=== PATIENT | female | born 2000 | race Caucasian/White ===

== ENCOUNTER 2019-12-21 16:16 | Inpatient (IN) | payer OTHER ==
[2019-12-21] MEDS ORDERED: Misoprostol 25 MCG (1/4 of 100 MCG) Tab VAG PRN (17:04)
[2019-12-21] MEDS ORDERED: Ondansetron 4 MG/2 ML SDV IVPUSH PRN (17:04)
[2019-12-21] MEDS ORDERED: Sodium Chloride 0.9% 10 ML Syringe FLUSH PRN (17:04)
--- NOTE | 2019-12-21 17:07 | PCM.LDHP ---
L&D History of Present Illness - General Date of Service: 12/21/19 Admit Problem/Dx: Patient Status Order with Admit Dx/Problem 12/21/19 16:21 Patient Status [ADT] Routine 12/21/19 17:04 Patient Status [ADT] Routine Admission Diagnosis/Problem Admission Diagnosis/Problem Elevated blood pressure L&D Exam - Vital Signs Weight: 75.342 kg Orders Last 24hrs: Active Orders 24 hr Category Date Time Status Patient Status [ADT] Routine ADT 12/21/19 16:21 Active Patient Status [ADT] Routine ADT 12/21/19 17:04 Ordered Communication Order [RC] ASDIRECTED Care 12/21/19 17:04 Ordered Communication Order [RC] ASDIRECTED Care 12/21/19 17:04 Ordered Communication Order [RC] ASDIRECTED Care 12/21/19 17:04 Ordered Heart Tones [RC] ASDIRECTED Care 12/21/19 17:05 Ordered Monitoring [RC] INTERMITTENT Care 12/21/19 17:04 Ordered Non Stress Test [RC] PER UNIT ROUTINE Care 12/21/19 16:21 Active Notify Provider [RC] ASDIRECTED Care 12/21/19 17:04 Ordered Notify Provider [RC] PRN Care 12/21/19 17:04 Ordered Peripheral IV Care [RC] . DIRECTED Care 12/21/19 17:05 Ordered Vaginal Exam [RC] ASDIRECTED Care 12/21/19 17:04 Ordered Vital Signs [RC] PER UNIT ROUTINE Care 12/21/19 16:21 Active Regular Diet [DIET] Diet 12/21/19 Lunch Active ALANINE AMINOTRANSFERASE,ALT [CHEM] Routine Lab 12/21/19 16:21 Ordered ASPARTATE AMNIOTRANSFERASE,AST [CHEM] Routine Lab 12/21/19 16:21 Ordered CBC WITH AUTO DIFF [HEME] Routine Lab 12/21/19 16:21 Ordered CORONAVIRUS COVID-19 RAPID [MOLEC] Stat Lab 12/21/19 16:27 Ordered CREATININE W/GFR [CHEM] Routine Lab 12/21/19 16:21 Ordered PROTEIN/CREATININE RATIO,URINE [URCHEM] Routine Lab 12/21/19 16:21 Ordered RAPID PLASMA REAGIN,RPR [CHEM] Routine Lab 12/21/19 17:04 Ordered TYPE AND SCREEN [BBK] Routine Lab 12/21/19 16:21 Ordered Lactated Ringers [Ringers, Lactated] 1,000 ml Med 12/21/19 17:15 Ordered IV ASDIRECTED Nalbuphine [Nubain] Med 12/21/19 17:04 Ordered 10 mg IVPUSH Q2H PRN Ondansetron [Zofran] Med 12/21/19 17:04 Ordered 4 mg IVPUSH Q4H PRN Oxytocin/Lactated Ringers [Pitocin in LR 10 Units/1,000 Med 12/21/19 17:15 Ordered ML] 10 unit in 1,000 ml IV .CONTINUOUS Oxytocin/Lactated Ringers [Pitocin in LR 10 Units/1,000 Med 12/21/19 17:15 Ordered ML] 10 unit in 1,000 ml IV TITRATE Sodium Chloride 0.9% [Saline Flush] Med 12/21/19 17:04 Ordered 10 ml FLUSH ASDIRECTED PRN miSOPROStoL [Cytotec] Med 12/21/19 17:04 Ordered 25 mcg VAG Q4H PRN Electronic Heart Tones Ext w TOCO [WOMSER] Oth 12/21/19 17:04 Ordered Routine Electronic Heart Tones Internal [WOMSER] Per Unit Ot 12/21/19 17:04 Ordered Routine Peripheral IV Insertion Adult [OM.PC] Routine Oth 12/21/19 17:04 Ordered Resuscitation Status Routine Resus Stat 12/21/19 16:21 Ordered
[2019-12-21] MEDS ORDERED: Misoprostol 25 MCG (1/4 of 100 MCG) Tab ONE (17:09)
[2019-12-21] MEDS ORDERED: Oxytocin/Lactated Ringers 10 UNIT/1,000 ML BAG IV SCH ×2 (17:15)
[2019-12-21] MEDS ORDERED: ePHEDrine 50 MG/ML SDV IVPUSH PRN (18:31)
[2019-12-21] MEDS ORDERED: fentaNYL 100 MCG/2 ML SDV EPIDUR PRN (18:31)
[2019-12-21] MEDS ORDERED: diphenhydrAMINE 50 MG/ML SDV IVPUSH PRN (18:31)
[2019-12-21] MEDS ORDERED: Bupivacaine/fentaNYL/NS 100 ML Bag EPIDUR PRN (18:31)
--- NOTE | 2019-12-21 19:54 | PCM.LDHP ---
L&D History of Present Illness - General Date of Service: 12/21/19 Admit Problem/Dx: Patient Status Order with Admit Dx/Problem 12/21/19 16:21 Patient Status [ADT] Routine 12/21/19 17:04 Patient Status [ADT] Routine Admission Diagnosis/Problem Admission Diagnosis/Problem Elevated blood pressure - History of Present Illness Introduction:: Patient is a 19 y/o at 38 2/7 wks who presents to L&D for further evaluation after findings of mild range BP's in clinic. Doing well. No signs or symptoms. No other concerns. 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 Para: 0 Social & Family History - Family History Family Medical History: Noncontributory - Tobacco Use Smoking Status *Q: Never Smoker Second Hand Smoke Exposure: No - Caffeine Use Caffeine Use: Reports: None - Alcohol Use Alcohol Use History: No - Recreational Drug Use Recreational Drug Use: No H&P Review of Systems - Review of Systems: Review Of Systems: See Below General: Reports: No Symptoms Pulmonary: Reports: No Symptoms Cardiovascular: Reports: No Symptoms Gastrointestinal: Reports: No Symptoms Genitourinary: Reports: No Symptoms Musculoskeletal: Reports: No Symptoms Psychiatric: Reports: No Symptoms Neurological: Reports: No Symptoms L&D Exam - Exam Exam: See Below - Vital Signs Vital Signs: Last Vital Signs Temp 37.9 C 12/21/19 16:21 Pulse 65 12/21/19 16:21 Resp 18 12/21/19 16:21 BP 143/93 H 12/21/19 16:21 Pulse Ox 100 12/21/19 16:21 Weight: 75.342 kg - OB Specific Contraction Intensity: Irritability Movement: Active Heart Tones: Present Heart Tones per Min: 120 Heart Rate (FHR) Variability: Moderate (6-25 bmp) Presentation: Vertex - Salgado Score Salgado Score Cervix Position: Posterior Salgado Score Consistency: Soft Salgado Score Effacement: 31-50% Salgado Score Dilation: 1-2 cm Salgado Score 's Station: -2 Salgado Score Total: 5 - Exam General: Alert, Oriented, Cooperative Lungs: Clear to Auscultation, Normal Respiratory Effort Cardiovascular: Regular Rate, Regular Rhythm GI/Abdominal Exam: Soft, Non-Tender Genitourinary: Normal external exam Extremities: Normal Inspection Skin: Warm, Dry, Intact - Patient Data Lab Results Last 24 hrs: Laboratory Results - last 24 hr 12/21/19 12/21/19 12/21/19 Range/Units 16:35 16:35 16:35 WBC 6.01 (3.98-10.04) K/mm3 RBC 4.05 (3.98-5.22) M/mm3 Hgb 11.7 (11.2-15.7) gm/dl Hct 35.9 (34.1-44.9) % MCV 88.6 (79.4-94.8) fl MCH 28.9 (25.6-32.2) pg MCHC 32.6 (32.2-35.5) g/dl RDW Std Deviation 39.5 (36.4-46.3) fL Plt Count 152 L (182-369) K/mm3 MPV 12.3 (9.4-12.3) fl Neut % (Auto) 62.0 (34.0-71.1) % Lymph % (Auto) 27.0 (19.3-51.7) % [place] % (Auto) 9.8 (4.7-12.5) % Eos % (Auto) 0.8 (0.7-5.8) Baso % (Auto) 0.2 (0.1-1.2) % Neut # (Auto) 3.73 (1.56-6.13) K/mm3 Lymph # (Auto) 1.62 (1.18-3.74) K/mm3 [place] # (Auto) 0.59 H (0.24-0.36) K/mm3 Eos # (Auto) 0.05 (0.04-0.36) K/mm3 Baso # (Auto) 0.01 (0.01-0.08) K/mm3 Creatinine 0.6 (0.55-1.02) mg/dL Est Cr Clr Drug Dosing TNP Estimated GFR (MDRD) > 60 (>60) mL/min AST 20 (15-37) U/L ALT 16 (14-59) U/L Ur Random Creatinine (30.0-125.0) mg/dL U Random Total Protein (0.0-11.8) mg/dL Protein/Creatinin Ratio (0-149) mg/g SARS CoV-2 RNA Rapid STEVEN (NEGATIVE) Blood Type A POSITIVE Gel Antibody Screen Negative 12/21/19 12/21/19 Range/Units 16:35 19:20 WBC (3.98-10.04) K/mm3 RBC (3.98-5.22) M/mm3 Hgb (11.2-15.7) gm/dl Hct (34.1-44.9) % MCV (79.4-94.8) fl MCH (25.6-32.2) pg MCHC (32.2-35.5) g/dl RDW Std Deviation (36.4-46.3) fL Plt Count (182-369) K/mm3 MPV (9.4-12.3) fl Neut % (Auto) (34.0-71.1) % Lymph % (Auto) (19.3-51.7) % [place] % (Auto) (4.7-12.5) % Eos % (Auto) (0.7-5.8) Baso % (Auto) (0.1-1.2) % Neut # (Auto) (1.56-6.13) K/mm3 Lymph # (Auto) (1.18-3.74) K/mm3 [place] # (Auto) (0.24-0.36) K/mm3 Eos # (Auto) (0.04-0.36) K/mm3 Baso # (Auto) (0.01-0.08) K/mm3 Creatinine (0.55-1.02) mg/dL Est Cr Clr Drug Dosing Estimated GFR (MDRD) (>60) mL/min AST (15-37) U/L ALT (14-59) U/L Ur Random Creatinine 41.1 (30.0-125.0) mg/dL U Random Total Protein 13.9 H (0.0-11.8) mg/dL Protein/Creatinin Ratio 338.2 H (0-149) mg/g SARS CoV-2 RNA Rapid STEVEN Negative (NEGATIVE) Blood Type Gel Antibody Screen Result Diagrams: 12/21/19 16:35 12/21/19 16:35 - Problem List (1) 38 weeks gestation of SNOMED Code(s): 13580257 ICD Code: Z3A.38 - 38 WEEKS GESTATION OF Status: Acute Current Visit: Yes (2) Preeclampsia SNOMED Code(s): 654303365 ICD Code: O14.90 - UNSPECIFIED PRE-ECLAMPSIA, UNSPECIFIED TRIMESTER Status: Acute Current Visit: Yes Qualifiers: Trimester: third trimester Qualified Code(s): O14.93 - Unspecified pre- eclampsia, third trimester Problem List Initiated/Reviewed/Updated: Yes Orders Last 24hrs: Active Orders 24 hr Category Date Time Status Patient Status [ADT] Routine ADT 12/21/19 16:21 Active Patient Status [ADT] Routine ADT 12/21/19 17:04 Active Communication Order [RC] ASDIRECTED Care 12/21/19 17:04 Active Communication Order [RC] ASDIRECTED Care 12/21/19 17:04 Active Communication Order [RC] ASDIRECTED Care 12/21/19 17:04 Active Communication Order [RC] ASDIRECTED Care 12/21/19 18:31 Active Cooling Warming Measures [RC] ASDIRECTED Care 12/21/19 18:31 Active Monitoring [RC] INTERMITTENT Care 12/21/19 17:04 Active Non Stress Test [RC] PER UNIT ROUTINE Care 12/21/19 16:21 Active Notify Provider [RC] ASDIRECTED Care 12/21/19 17:04 Active Notify Provider [RC] ASDIRECTED Care 12/21/19 18:31 Active Notify Provider [RC] ASDIRECTED Care 12/21/19 18:31 Active Notify Provider [RC] PRN Care 12/21/19 17:04 Active Oxygen Therapy [RC] ASDIRECTED Care 12/21/19 18:31 Active Peripheral IV Care [RC] . DIRECTED Care 12/21/19 17:05 Active Pulse Oximetry [RC] ASDIRECTED Care 12/21/19 18:31 Active Vital Signs [RC] PER UNIT ROUTINE Care 12/21/19 16:21 Active Vital Signs [RC] PRN Care 12/21/19 18:31 Active Regular Diet [DIET] Diet 12/21/19 Lunch Active PATIENT RETYPE [BBK] Routine Lab 12/21/19 16:35 Received RAPID PLASMA REAGIN,RPR [CHEM] Routine Lab 12/21/19 16:35 Received Bupivacaine/fentaNYL/NS [fentaNYL/Bupivacaine/NS 2 MCG- Med 12/21/19 18:31 Active 0.125% 100 ML] 100 ml EPIDUR ASDIRECTED PRN Lactated Ringers [Ringers, Lactated] 1,000 ml Med 12/21/19 17:15 Active IV ASDIRECTED Nalbuphine [Nubain] Med 12/21/19 17:04 Active 10 mg IVPUSH Q2H PRN Ondansetron [Zofran] Med 12/21/19 17:04 Active 4 mg IVPUSH Q4H PRN Oxytocin/Lactated Ringers [Pitocin in LR 10 Units/1,000 Med 12/21/19 17:15 Active ML] 10 unit in 1,000 ml IV .CONTINUOUS Oxytocin/Lactated Ringers [Pitocin in LR 10 Units/1,000 Med 12/21/19 17:15 Active ML] 10 unit in 1,000 ml IV TITRATE Sodium Chloride 0.9% [Saline Flush] Med 12/21/19 17:04 Active 10 ml FLUSH ASDIRECTED PRN diphenhydrAMINE [Benadryl] Med 12/21/19 18:31 Active 25 mg IVPUSH Q6H PRN ePHEDrine [ePHEDrine sulfate] Med 12/21/19 18:31 Active 5 mg IVPUSH ASDIRECTED PRN fentaNYL [Sublimaze] Med 12/21/19 18:31 Active 100 mcg EPIDUR Q3H PRN miSOPROStoL [Cytotec] Med 12/21/19 17:04 Active 25 mcg VAG Q4H PRN Electronic Heart Tones Ext w TOCO [WOMSER] Oth 12/21/19 17:04 Ordered Routine Electronic Heart Tones Internal [WOMSER] Per Unit Oth 12/21/19 17:04 Ordered Routine Peripheral IV Insertion Adult [OM.PC] Routine Ot 12/21/19 17:04 Ordered Resuscitation Status Routine Resus Stat 12/21/19 16:21 Ordered Medication Orders Diphenhydramine HCl (Benadryl) 25 mg IVPUSH Q6H PRN PRN Reason: pruritis Ephedrine Sulfate (Ephedrine Sulfate) 5 mg IVPUSH ASDIRECTED PRN PRN Reason: Hypotension Fentanyl (Sublimaze) 100 mcg EPIDUR Q3H PRN PRN Reason: Pain Fentanyl/Bupivacaine HCl (Fentanyl/Bupivacaine/Ns 2 Mcg-0.125% 100 Ml) 100 ml EPIDUR ASDIRECTED PRN PRN Reason: Pain Lactated Ringer's (Ringers, Lactated) 1,000 mls @ 40 mls/hr IV ASDIRECTED MADELAINE Oxytocin/Lactated Ringer's (Pitocin In Lr 10 Units/1,000 Ml) 10 unit in 1,000 mls @ 12 mls/hr IV TITRATE MADELAINE; Protocol Oxytocin/Lactated Ringer's (Pitocin In Lr 10 Units/1,000 Ml) 10 unit in 1,000 mls @ 500 mls/hr IV .CONTINUOUS MADELAINE Misoprostol (Cytotec) 25 mcg VAG Q4H PRN PRN Reason: cervical ripening Last Admin: 12/21/19 17:15 Dose: 25 mcg Documented by: DOLELIGhanshyam Nalbuphine HCl (Nubain) 10 mg IVPUSH Q2H PRN PRN Reason: Pain Ondansetron HCl (Zofran) 4 mg IVPUSH Q4H PRN PRN Reason: Nausea/Vomiting Sodium Chloride (Saline Flush) 10 ml FLUSH ASDIRECTED PRN PRN Reason: Keep Vein Open Assessment/Plan Comment:: Patient BP's continue to be mild. Elevated urine protein:creatinine ratio, but labs otherwise normal. Will start IOL for preeclampsia without severe features * GBS negative * Cytotec for IOL. Pitocin/AROM when able * Pain management per patinet preference * Anticipate
[2019-12-21] MEDS: Misoprostol 25 MCG (1/4 of 100 MCG) Tab VAG PRN (21:16)
[2019-12-21] MEDS: Lactated Ringers 1,000 ML IV SCH (22:18)
[2019-12-22] MEDS ORDERED: Bupivacaine 0.25% 10 ML SDV ONE
[2019-12-22] MEDS: Misoprostol 25 MCG (1/4 of 100 MCG) Tab VAG PRN (01:19)
[2019-12-22] MEDS: Lactated Ringers 1,000 ML IV SCH ×3 (02:07→12:02)
[2019-12-22] MEDS ORDERED: Misoprostol 25 MCG (1/4 of 100 MCG) Tab VAG ONE (05:15)
--- NOTE | 2019-12-22 06:48 | PCM.PNLD ---
Labor Progress Note - VS & Meds Vital Signs: Last Vital Signs Temp 37.9 C 12/21/19 16:21 Pulse 65 12/21/19 16:21 Resp 18 12/21/19 16:21 BP 143/93 H 12/21/19 16:21 Pulse Ox 100 12/21/19 16:21 Active Medications: Current Medications Diphenhydramine HCl (Benadryl) 25 mg IVPUSH Q6H PRN PRN Reason: pruritis Ephedrine Sulfate (Ephedrine Sulfate) 5 mg IVPUSH ASDIRECTED PRN PRN Reason: Hypotension Fentanyl (Sublimaze) 100 mcg EPIDUR Q3H PRN PRN Reason: Pain Fentanyl/Bupivacaine HCl (Fentanyl/Bupivacaine/Ns 2 Mcg-0.125% 100 Ml) 100 ml EPIDUR ASDIRECTED PRN PRN Reason: Pain Lactated Ringer's (Ringers, Lactated) 1,000 mls @ 40 mls/hr IV ASDIRECTED MADELAINE Last Admin: 12/22/19 02:07 Dose: 40 mls/hr Documented by: Oxytocin/Lactated Ringer's (Pitocin In Lr 10 Units/1,000 Ml) 10 unit in 1,000 mls @ 12 mls/hr IV TITRATE MADELAINE; Protocol Oxytocin/Lactated Ringer's (Pitocin In Lr 10 Units/1,000 Ml) 10 unit in 1,000 mls @ 500 mls/hr IV .CONTINUOUS MADELAINE Nalbuphine HCl (Nubain) 10 mg IVPUSH Q2H PRN PRN Reason: Pain Ondansetron HCl (Zofran) 4 mg IVPUSH Q4H PRN PRN Reason: Nausea/Vomiting Sodium Chloride (Saline Flush) 10 ml FLUSH ASDIRECTED PRN PRN Reason: Keep Vein Open Discontinued Medications Misoprostol (Cytotec) 25 mcg VAG Q4H PRN PRN Reason: cervical ripening Last Admin: 12/21/19 17:15 Dose: 25 mcg Documented by: Misoprostol (Cytotec) Confirm Administered Dose 25 mcg .ROUTE .STK-MED ONE Stop: 12/21/19 17:10 Last Admin: 12/22/19 02:14 Dose: Not Given Documented by: Misoprostol (Cytotec) 25 mcg VAG Q4H PRN PRN Reason: cervical ripening Last Admin: 12/22/19 01:19 Dose: 25 mcg Documented by: Misoprostol (Cytotec) 25 mcg VAG ONETIME ONE Stop: 12/22/19 05:16 - Uterine Contractions Uterine Monitoring Mode: External [place] Contraction Intensity: Moderate - Monitoring Monitor Mode: External Ultrasound Heart Rate (FHR) Variability: Moderate (6-25 bmp) Accelerations: Present, 15x15 Strip Review: Category I - Vaginal Exam Dilation (cm): 2-3 Effacement (Percent): 80 Station: -2 Cervical Position: Posterior - Labor Progress (Free Text) Labor Progress: Doing well. Received 3 doses of Cytotec overnight and then became very uncomfortable. Changed from 0.5 to 2-3. Will allow patient to continue to labor without augmentation. Can start pitocin if needed
[2019-12-22] MEDS: Nalbuphine 10 MG/ML Syringe IVPUSH PRN ×2 (07:21→11:16)
--- NOTE | 2019-12-22 11:33 | PCM.PNLD ---
Labor Progress Note - VS & Meds Vital Signs: Last Vital Signs Temp 37.9 C 12/21/19 16:21 Pulse 65 12/21/19 16:21 Resp 18 12/21/19 16:21 BP 143/93 H 12/21/19 16:21 Pulse Ox 100 12/21/19 16:21 Active Medications: Current Medications Diphenhydramine HCl (Benadryl) 25 mg IVPUSH Q6H PRN PRN Reason: pruritis Ephedrine Sulfate (Ephedrine Sulfate) 5 mg IVPUSH ASDIRECTED PRN PRN Reason: Hypotension Fentanyl (Sublimaze) 100 mcg EPIDUR Q3H PRN PRN Reason: Pain Fentanyl/Bupivacaine HCl (Fentanyl/Bupivacaine/Ns 2 Mcg-0.125% 100 Ml) 100 ml EPIDUR ASDIRECTED PRN PRN Reason: Pain Lactated Ringer's (Ringers, Lactated) 1,000 mls @ 40 mls/hr IV ASDIRECTED MADELAINE Last Admin: 12/22/19 09:18 Dose: 40 mls/hr Documented by: Oxytocin/Lactated Ringer's (Pitocin In Lr 10 Units/1,000 Ml) 10 unit in 1,000 mls @ 12 mls/hr IV TITRATE MADELAINE; Protocol Last Titration: 12/22/19 10:15 Dose: 6 munits/min, 36 mls/hr Documented by: Oxytocin/Lactated Ringer's (Pitocin In Lr 10 Units/1,000 Ml) 10 unit in 1,000 mls @ 500 mls/hr IV .CONTINUOUS MADELAINE Nalbuphine HCl (Nubain) 10 mg IVPUSH Q2H PRN PRN Reason: Pain Last Admin: 12/22/19 11:16 Dose: 10 mg Documented by: Ondansetron HCl (Zofran) 4 mg IVPUSH Q4H PRN PRN Reason: Nausea/Vomiting Sodium Chloride (Saline Flush) 10 ml FLUSH ASDIRECTED PRN PRN Reason: Keep Vein Open Discontinued Medications Misoprostol (Cytotec) 25 mcg VAG Q4H PRN PRN Reason: cervical ripening Last Admin: 12/21/19 17:15 Dose: 25 mcg Documented by: Misoprostol (Cytotec) Confirm Administered Dose 25 mcg .ROUTE .ST-MED ONE Stop: 12/21/19 17:10 Last Admin: 12/22/19 02:14 Dose: Not Given Documented by: Misoprostol (Cytotec) 25 mcg VAG Q4H PRN PRN Reason: cervical ripening Last Admin: 12/22/19 01:19 Dose: 25 mcg Documented by: Misoprostol (Cytotec) 25 mcg VAG ONETIME ONE Stop: 12/22/19 05:16 - Uterine Contractions Uterine Monitoring Mode: External [place] Contraction Intensity: Moderate to Strong - Monitoring Monitor Mode: External Ultrasound Heart Rate (FHR) Baseline: 120 Heart Rate (FHR) Variability: Moderate (6-25 bmp) Accelerations: Present, 15x15 Strip Review: Category I - Vaginal Exam Dilation (cm): 9 Effacement (Percent): 90 Station: -1 Cervical Position: Midposition Sterile Vaginal Exam Performed By: Natividad Franco - Labor Progress (Free Text) Labor Progress: Doing well. on 6 of pitocin. AROM done with release of clear fluid. BP's remain mild range. Continue current plan
--- NOTE | 2019-12-22 12:11 | PCM.PREANE ---
Preanesthetic Assessment - Procedure Proposed Procedure: [place] - Anesthesia/Transfusion/Family Hx Anesthesia History: No Prior Anesthesia Family History of Anesthesia Reaction: No Transfusion History: No Prior Transfusion(s) - Review of Systems General: No Symptoms Pulmonary: No Symptoms Cardiovascular: No Symptoms Gastrointestinal: No Symptoms Neurological: No Symptoms Other: Reports: None - Physical Assessment Vital Signs: Last Vital Signs Temp 100.3 F 12/21/19 16:21 Pulse 65 12/21/19 16:21 Resp 18 12/21/19 16:21 BP 143/93 H 12/21/19 16:21 Pulse Ox 100 12/21/19 16:21 Height: 5 ft 5 in Weight: 75.342 kg ASA Class: 2 Mental Status: Alert & Oriented x3 Airway Class: Mallampati = 1 Dentition: Reports: Normal Dentition Thyro-Mental Finger Breadths: 3 Mouth Opening Finger Breadths: 3 ROM/Head Extension: Full Lungs: Clear to Auscultation, Normal Respiratory Effort Cardiovascular: Regular Rate, Regular Rhythm - Lab Values: Laboratory Last Values WBC 6.01 K/mm3 (3.98-10.04) 12/21/19 16:35 RBC 4.05 M/mm3 (3.98-5.22) 12/21/19 16:35 Hgb 11.7 gm/dl (11.2-15.7) 12/21/19 16:35 Hct 35.9 % (34.1-44.9) 12/21/19 16:35 MCV 88.6 fl (79.4-94.8) 12/21/19 16:35 MCH 28.9 pg (25.6-32.2) 12/21/19 16:35 MCHC 32.6 g/dl (32.2-35.5) 12/21/19 16:35 RDW Std Deviation 39.5 fL (36.4-46.3) 12/21/19 16:35 Plt Count 152 K/mm3 (182-369) L 12/21/19 16:35 MPV 12.3 fl (9.4-12.3) 12/21/19 16:35 Neut % (Auto) 62.0 % (34.0-71.1) 12/21/19 16:35 Lymph % (Auto) 27.0 % (19.3-51.7) 12/21/19 16:35 [place] % (Auto) 9.8 % (4.7-12.5) 12/21/19 16:35 Eos % (Auto) 0.8 (0.7-5.8) 12/21/19 16:35 Baso % (Auto) 0.2 % (0.1-1.2) 12/21/19 16:35 Neut # (Auto) 3.73 K/mm3 (1.56-6.13) 12/21/19 16:35 Lymph # (Auto) 1.62 K/mm3 (1.18-3.74) 12/21/19 16:35 [place] # (Auto) 0.59 K/mm3 (0.24-0.36) H 12/21/19 16:35 Eos # (Auto) 0.05 K/mm3 (0.04-0.36) 12/21/19 16:35 Baso # (Auto) 0.01 K/mm3 (0.01-0.08) 12/21/19 16:35 Creatinine 0.6 mg/dL (0.55-1.02) 12/21/19 16:35 Est Cr Clr Drug Dosing TNP 12/21/19 16:35 Estimated GFR (MDRD) > 60 mL/min (>60) 12/21/19 16:35 AST 20 U/L (15-37) 12/21/19 16:35 ALT 16 U/L (14-59) 12/21/19 16:35 Ur Random Creatinine 41.1 mg/dL (30.0-125.0) 12/21/19 19:20 U Random Total Protein 13.9 mg/dL (0.0-11.8) H 12/21/19 19:20 Protein/Creatinin Ratio 338.2 mg/g (0-149) H 12/21/19 19:20 RPR Non-reactive (NONREACTIVE) 12/21/19 16:35 SARS CoV-2 RNA Rapid STEVEN Negative (NEGATIVE) 12/21/19 16:35 Blood Type A POSITIVE 12/21/19 16:35 Gel Antibody Screen Negative 12/21/19 16:35 - Allergies Allergies/Adverse Reactions: Allergies Allergy/AdvReac Type Severity Reaction Status Date / Time No Known Allergies Allergy Verified 12/21/19 17:08 - Blood Blood Available: No - Acknowledgements Anesthesia Type Planned: Epidural Pt an Appropriate Candidate for the Planned Anesthesia: Yes Alternatives and Risks of Anesthesia Discussed w Pt/Guardian: Yes Pt/Guardian Understands and Agrees with Anesthesia Plan: Yes PreAnesthesia Questionnaire - Past Health History Medical/Surgical History: Denies Medical/Surgical History Cardiovascular History: Reports: None Respiratory History: Reports: None Gastrointestinal History: Reports: None 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 Smoking Status *Q: Never Smoker Tobacco Use Within Last Twelve Months: No Second Hand Smoke Exposure: No Recreational Drug Use History: No - HOME MEDS Home Medications: Home Meds Vit #76/Iron,Carb/Fa [Prenatabs Rx] 1 tab PO DAILY 12/21/19 [History] - CURRENT (IN HOUSE) MEDS Current Meds: Current Medications Diphenhydramine HCl (Benadryl) 25 mg IVPUSH Q6H PRN PRN Reason: pruritis Ephedrine Sulfate (Ephedrine Sulfate) 5 mg IVPUSH ASDIRECTED PRN PRN Reason: Hypotension Fentanyl (Sublimaze) 100 mcg EPIDUR Q3H PRN PRN Reason: Pain Last Admin: 12/22/19 11:54 Dose: 100 mcg Documented by: Fentanyl/Bupivacaine HCl (Fentanyl/Bupivacaine/Ns 2 Mcg-0.125% 100 Ml) 100 ml EPIDUR ASDIRECTED PRN PRN Reason: Pain Last Admin: 12/22/19 11:54 Dose: 100 ml Documented by: Lactated Ringer's (Ringers, Lactated) 1,000 mls @ 40 mls/hr IV ASDIRECTED MADELAINE Last Admin: 12/22/19 12:02 Dose: 40 mls/hr Documented by: Oxytocin/Lactated Ringer's (Pitocin In Lr 10 Units/1,000 Ml) 10 unit in 1,000 mls @ 12 mls/hr IV TITRATE MADELAINE; Protocol Last Titration: 12/22/19 10:15 Dose: 6 munits/min, 36 mls/hr Documented by: Oxytocin/Lactated Ringer's (Pitocin In Lr 10 Units/1,000 Ml) 10 unit in 1,000 mls @ 500 mls/hr IV .CONTINUOUS MADELAINE Nalbuphine HCl (Nubain) 10 mg IVPUSH Q2H PRN PRN Reason: Pain Last Admin: 12/22/19 11:16 Dose: 10 mg Documented by: Ondansetron HCl (Zofran) 4 mg IVPUSH Q4H PRN PRN Reason: Nausea/Vomiting Sodium Chloride (Saline Flush) 10 ml FLUSH ASDIRECTED PRN PRN Reason: Keep Vein Open Discontinued Medications Misoprostol (Cytotec) 25 mcg VAG Q4H PRN PRN Reason: cervical ripening Last Admin: 12/21/19 17:15 Dose: 25 mcg Documented by: Misoprostol (Cytotec) Confirm Administered Dose 25 mcg .ROUTE .STK-MED ONE Stop: 12/21/19 17:10 Last Admin: 12/22/19 02:14 Dose: Not Given Documented by: Misoprostol (Cytotec) 25 mcg VAG Q4H PRN PRN Reason: cervical ripening Last Admin: 12/22/19 01:19 Dose: 25 mcg Documented by: Misoprostol (Cytotec) 25 mcg VAG ONETIME ONE Stop: 12/22/19 05:16
[2019-12-22] MEDS ORDERED: Misoprostol 200 MCG Tab PO STA (14:45)
--- NOTE | 2019-12-22 14:47 | PCM.DEL ---
L & D Note - General Info Date of Service: 12/22/19 - Delivery Note Labor: Induced by ARM, Induced by Oxytocin Cervical Ripening Method: Misoprostil Delivery Outcome: Livebirth Delivery Method: Spontaneous Vaginal Delivery-Single Infant Delivery Mode: Spontaneous Presentation: Left Occiput Anterior (THERESA) Nuchal Cord: None Anesthesia Type: Epidural Amniotic Fluid Description: Clear Episiotomy Type: None Laceration: Other (Periclitoral ) Suture type: Vicryl Suture size: 2-0 Placenta: Intact, Spontaneous Cord: 3 Vessels Estimated Blood Loss: 600 Resuscitation Needed: Yes [place]: Bulb Syringe, Stimulated, Warmed, [place] Used, Warmer Used Delivery Comments (Free Text/Narrative):: Patient found to be completed and began pushing. With maternal pushing effort head delivered from THERESA position. No nuchal cord present. With gentle downward traction the shoulders and body delivered. placed on maternal abdomen. Cord clamped and cut. Cord blood obtained. Placenta allowed time to separate and expelled intact. There was very brisk bleeding after delivery of placenta and she was given 600 mcg of buccal cytotec. Inspection of perineum also showed a small periclitoral tear, however, this was bleeding very quickly. This was controlled with a running, locked suture of 2-0 Vicryl. Total EBL 600 cc - General Info Date of Service: 12/22/19 - Patient Data Vitals - Most Recent: Last Vital Signs Temp 37.9 C 12/21/19 16:21 Pulse 65 12/21/19 16:21 Resp 18 12/21/19 16:21 BP 143/93 H 12/21/19 16:21 Pulse Ox 100 12/21/19 16:21 Weight - Most Recent: 75.342 kg - Problem List & Annotations (1) 38 weeks gestation of SNOMED Code(s): 12157685 Code(s): Z3A.38 - 38 WEEKS GESTATION OF Status: Acute Current Visit: Yes (2) Preeclampsia SNOMED Code(s): 682802547 Code(s): O14.90 - UNSPECIFIED PRE-ECLAMPSIA, UNSPECIFIED TRIMESTER Status: Acute Current Visit: Yes Qualifiers: Trimester: third trimester Qualified Code(s): O14.93 - Unspecified pre- eclampsia, third trimester (3) Vaginal delivery SNOMED Code(s): 637203092 Code(s): O80 - ENCOUNTER FOR FULL-TERM UNCOMPLICATED DELIVERY Status: Acute Current Visit: Yes (4) hemorrhage SNOMED Code(s): 02919642 Code(s): O72.1 - OTHER IMMEDIATE HEMORRHAGE Status: Acute Current Visit: Yes Qualifiers: hemorrhage type: other immediate Qualified Code(s): O72.1 - Other immediate hemorrhage - Problem List Review Problem List Initiated/Reviewed/Updated: Yes - My Orders Last 24 Hours: My Active Orders 12/21/19 16:21 Patient Status [ADT] Routine Non Stress Test [RC] PER UNIT ROUTINE Vital Signs [RC] PER UNIT ROUTINE Resuscitation Status Routine 12/21/19 17:04 Patient Status [ADT] Routine Communication Order [RC] ASDIRECTED Communication Order [RC] ASDIRECTED Communication Order [RC] ASDIRECTED Monitoring [RC] INTERMITTENT Notify Provider [RC] ASDIRECTED Notify Provider [RC] PRN Nalbuphine [Nubain] 10 mg IVPUSH Q2H PRN Ondansetron [Zofran] 4 mg IVPUSH Q4H PRN Sodium Chloride 0.9% [Saline Flush] 10 ml FLUSH ASDIRECTED PRN Electronic Heart Tones Ext w TOCO [WOMSER] Routine Electronic Heart Tones Internal [WOMSER] Per Unit Routine Peripheral IV Insertion Adult [OM.PC] Routine 12/21/19 17:05 Peripheral IV Care [RC] . DIRECTED 12/21/19 17:15 Lactated Ringers [Ringers, Lactated] 1,000 ml IV ASDIRECTED Oxytocin/Lactated Ringers [Pitocin in LR 10 Units/1,000 ML] 10 unit in 1,000 ml IV .CONTINUOUS Oxytocin/Lactated Ringers [Pitocin in LR 10 Units/1,000 ML] 10 unit in 1,000 ml IV TITRATE 12/22/19 14:45 Patient Status Manage Transfer [TRANSFER] Routine - Assessment Assessment:: PPD#0 - Plan Plan:: * Routine cares * Breast feeding * Monitor BP's closely * Monitor bleeding closely as well. Repeat CBC in AM as patient somewhat symptomatic * Discharge home in 1-2 days
[2019-12-22] MEDS ORDERED: Witch Hazel Medicated Pads 40/Jar TOP PRN (14:54)
[2019-12-22] MEDS ORDERED: Benzocaine/Menthol 20%-0.5% Spray 56 GM Canister TOP PRN (14:54)
[2019-12-22] MEDS ORDERED: Ibuprofen 600 MG Tab PO PRN (14:54)
[2019-12-22] MEDS ORDERED: Acetaminophen 325 MG Tab PO PRN (14:54)
[2019-12-22] MEDS ORDERED: Ondansetron 8 MG in Sodium Chloride 0.9% 50 ML IV ONE (17:18)
[2019-12-22] MEDS ORDERED: Lactated Ringers 1,000 ML IV ONE (17:18)
[2019-12-22] MEDS ORDERED: Ondansetron 4 MG/2 ML SDV ONE (17:39)
[2019-12-22] MEDS ORDERED: Ondansetron 4 MG/2 ML SDV IVPUSH PRN (17:41)
[2019-12-23] MEDS ORDERED: Sodium Chloride 0.9% 1,000 ML IV SCH (07:15)
--- NOTE | 2019-12-23 07:15 | PCM.PNPP ---
- General Info Date of Service: 12/23/19 Functional Status: Reports: Pain Controlled, Tolerating Diet - Review of Systems General: Reports: Fatigue Pulmonary: Reports: No Symptoms Cardiovascular: Reports: Lightheadedness Gastrointestinal: Reports: No Symptoms Genitourinary: Reports: Incontinence Musculoskeletal: Reports: No Symptoms Neurological: Reports: No Symptoms - Patient Data Vital Signs - Most Recent: Last Vital Signs Temp 36.3 C 12/23/19 03:49 Pulse 74 12/23/19 03:49 Resp 16 12/23/19 03:49 BP 109/71 12/23/19 03:49 Pulse Ox 98 12/23/19 03:49 Weight - Most Recent: 75.342 kg I&O - Last 24 Hours: Intake & Output 12/22/19 12/23/19 12/23/19 22:59 06:59 14:59 Output Total 600 Balance -600 Lab Results - Last 24 Hours: Laboratory Results - last 24 hr 12/21/19 12/23/19 Range/Units 16:35 06:25 WBC 10.03 (3.98-10.04) K/mm3 RBC 2.29 L (3.98-5.22) M/mm3 Hgb 6.5 L* D (11.2-15.7) gm/dl Hct 20.9 L (34.1-44.9) % MCV 91.3 (79.4-94.8) fl MCH 28.4 (25.6-32.2) pg MCHC 31.1 L (32.2-35.5) g/dl RDW Std Deviation 38.8 (36.4-46.3) fL Plt Count 113 L (182-369) K/mm3 MPV 11.9 (9.4-12.3) fl Crossmatch See Detail Med Orders - Current: Current Medications Acetaminophen (Tylenol) 650 mg PO Q4H PRN PRN Reason: mild pain or fever Last Admin: 12/23/19 00:47 Dose: 650 mg Documented by: Benzocaine/Menthol (Dermoplast Pain Relief [place]) 0 gm TOP ASDIRECTED PRN PRN Reason: Perineal Comfort Measure Sodium Chloride (Normal Saline) 1,000 mls @ 125 mls/hr IV ASDIRECTED MADELAINE Ibuprofen (Motrin) 600 mg PO Q4H PRN PRN Reason: Mild pain or fever Ondansetron HCl (Zofran) 4 mg IVPUSH Q8H PRN PRN Reason: Nausea Last Admin: 12/22/19 17:49 Dose: 4 mg Documented by: Shiraz Mcclellan) 1 pad TOP ASDIRECTED PRN PRN Reason: Perineal Comfort Measure Discontinued Medications Diphenhydramine HCl (Benadryl) 25 mg IVPUSH Q6H PRN PRN Reason: pruritis Ephedrine Sulfate (Ephedrine Sulfate) 5 mg IVPUSH ASDIRECTED PRN PRN Reason: Hypotension Fentanyl (Sublimaze) 100 mcg EPIDUR Q3H PRN PRN Reason: Pain Last Admin: 12/22/19 11:54 Dose: 100 mcg Documented by: Fentanyl/Bupivacaine HCl (Fentanyl/Bupivacaine/Ns 2 Mcg-0.125% 100 Ml) 100 ml EPIDUR ASDIRECTED PRN PRN Reason: Pain Last Admin: 12/22/19 11:54 Dose: 100 ml Documented by: Lactated Ringer's (Ringers, Lactated) 1,000 mls @ 40 mls/hr IV ASDIRECTED MADELAINE Last Admin: 12/22/19 12:02 Dose: 40 mls/hr Documented by: Oxytocin/Lactated Ringer's (Pitocin In Lr 10 Units/1,000 Ml) 10 unit in 1,000 mls @ 12 mls/hr IV TITRATE MADELAINE; Protocol Last Titration: 12/22/19 12:24 Dose: 0 munits/min, 0 mls/hr Documented by: Oxytocin/Lactated Ringer's (Pitocin In Lr 10 Units/1,000 Ml) 10 unit in 1,000 m ls @ 500 mls/hr IV .CONTINUOUS MAEDLAINE Ondansetron HCl 8 mg/ Sodium (Chloride) 54 mls @ 100 mls/hr IV ONETIME ONE Stop: 12/22/19 17:50 Lactated Ringer's (Ringers, Lactated) 1,000 mls @ 1,000 mls/hr IV .BOLUS ONE Stop: 12/22/19 18:17 Last Admin: 12/22/19 17:20 Dose: 1,000 mls/hr Documented by: Misoprostol (Cytotec) 25 mcg VAG Q4H PRN PRN Reason: cervical ripening Last Admin: 12/21/19 17:15 Dose: 25 mcg Documented by: Misoprostol (Cytotec) Confirm Administered Dose 25 mcg .ROUTE .STK-MED ONE Stop: 12/21/19 17:10 Last Admin: 12/22/19 02:14 Dose: Not Given Documented by: Misoprostol (Cytotec) 25 mcg VAG Q4H PRN PRN Reason: cervical ripening Last Admin: 12/22/19 01:19 Dose: 25 mcg Documented by: Misoprostol (Cytotec) 25 mcg VAG ONETIME ONE Stop: 12/22/19 05:16 Misoprostol (Cytotec) 600 mcg PO NOW STA Stop: 12/22/19 14:46 Last Admin: 12/22/19 14:35 Dose: 600 mcg Documented by: Nalbuphine HCl (Nubain) 10 mg IVPUSH Q2H PRN PRN Reason: Pain Last Admin: 12/22/19 11:16 Dose: 10 mg Documented by: Ondansetron HCl (Zofran) 4 mg IVPUSH Q4H PRN PRN Reason: Nausea/Vomiting Ondansetron HCl (Zofran) Confirm Administered Dose 8 mg .ROUTE .STK-MED ONE Stop: 12/22/19 17:40 Sodium Chloride (Saline Flush) 10 ml FLUSH ASDIRECTED PRN PRN Reason: Keep Vein Open - Interaction Infant Disposition, : in Room with Family Infant Interaction: Holding Infant Feeding: Attempted ; Nursed Fair/Poor - Recovery Exam Fundal Tone: Firm Fundal Level: 2 Fingerbreadths Below Umbilicus Fundal Placement: Left Lochia Amount: Moderate Lochia Color: Rubra/Red Perineum Description: Intact, Minimal Bruising/Swelling Episiotomy/Laceration: Approximated - Exam General: Alert, Oriented, Cooperative GI/Abdominal Exam: Soft, Non-Tender Extremities: Normal Inspection Skin: Warm, Dry, Intact - Problem List & Annotations (1) 38 weeks gestation of SNOMED Code(s): 10647263 Code(s): Z3A.38 - 38 WEEKS GESTATION OF Status: Acute Current Visit: Yes (2) Preeclampsia SNOMED Code(s): 373194519 Code(s): O14.90 - UNSPECIFIED PRE-ECLAMPSIA, UNSPECIFIED TRIMESTER Status: Acute Current Visit: Yes Qualifiers: Trimester: third trimester Qualified Code(s): O14.93 - Unspecified pre- eclampsia, third trimester (3) Vaginal delivery SNOMED Code(s): 602860566 Code(s): O80 - ENCOUNTER FOR FULL-TERM UNCOMPLICATED DELIVERY Status: Acute Current Visit: Yes (4) hemorrhage SNOMED Code(s): 31134267 Code(s): O72.1 - OTHER IMMEDIATE HEMORRHAGE Status: Acute Current Visit: Yes Qualifiers: hemorrhage type: other immediate Qualified Code(s): O72.1 - Other immediate hemorrhage - Problem List Review Problem List Initiated/Reviewed/Updated: Yes - My Orders Last 24 Hours: My Active Orders 12/22/19 14:54 Acetaminophen [TylenoL] 650 mg PO Q4H PRN Benzocaine/Menthol [Dermoplast Pain Relief [place]] See Dose Instructions TOP ASDIRECTED PRN Ibuprofen [Motrin] 600 mg PO Q4H PRN witch Rose [Tucks] 1 pad TOP ASDIRECTED PRN 12/22/19 14:54 Activity as Tolerated [RC] PER UNIT ROUTINE Vital Signs [RC] ,,, Assess Lochia [WOMSER] Per Unit Routine Assess Uterine Involution [WOMSER] Per Unit Routine Breast Pump [WOMSER] Per Unit Routine Ice Therapy [OM.PC] Per Unit Routine Perineal Care [OM.PC] Per Unit Routine Peripheral IV Discontinue [OM.PC] Routine Sitz Bath [OM.PC] Per Unit Routine 12/22/19 15:00 Heat Therapy [OM.PC] PRN 12/22/19 Dinner Regular Diet [DIET] 12/22/19 17:41 Ondansetron [Zofran] 4 mg IVPUSH Q8H PRN 12/23/19 07:14 Verify Patient Consent Obtain [RC] ASDIRECTED RED BLOOD CELLS LP [BBK] Routine Transfuse Red Blood Cells [COMM] Routine 12/23/19 07:15 Sodium Chloride 0.9% [Normal Saline] 1,000 ml IV ASDIRECTED 12/23/19 15:00 Heat Therapy [OM.PC] PRN - Assessment Assessment:: PPD#1 - Plan Plan:: * Routine cares * Breast feeding * BP's normal to mild range overnight * Bleeding appropriate overnight, but Hb this am 6.5 (from 11.7 on admission) after PPH. Will give 1 unit of blood this AM * Discharge home tomorrow
--- NOTE | 2019-12-23 07:17 | PCM48HPAN ---
Post Anesthesia Note - EVALUATION WITHIN 48HRS OF ANESTHETIC Vital Signs in Normal Range: Yes Patient Participated in Evaluation: Yes Respiratory Function Stable: Yes Airway Patent: Yes Cardiovascular Function Stable: Yes Hydration Status Stable: Yes Pain Control Satisfactory: Yes Nausea and Vomiting Control Satisfactory: Yes Mental Status Recovered: Yes Vital Signs: Last Vital Signs Temp 36.3 C 12/23/19 03:49 Pulse 74 12/23/19 03:49 Resp 16 12/23/19 03:49 BP 109/71 12/23/19 03:49 Pulse Ox 98 12/23/19 03:49 - COMMENTS/OBSERVATIONS Free Text/Narrative:: Patient appears pale. Patient encouraged to ask for assistance when getting up to go to the bathroom. AM HGB=6.5 justifies symptoms of dizziness when getting up.
--- NOTE | 2019-12-24 06:30 | PCM.PNPP ---
- General Info Date of Service: 12/24/19 Functional Status: Reports: Pain Controlled, Tolerating Diet, Ambulating, Urinating - Review of Systems General: Reports: No Symptoms Pulmonary: Reports: No Symptoms Cardiovascular: Reports: No Symptoms Gastrointestinal: Reports: No Symptoms Genitourinary: Reports: No Symptoms Musculoskeletal: Reports: No Symptoms Neurological: Reports: No Symptoms - Patient Data Vital Signs - Most Recent: Last Vital Signs Temp 37.2 C 12/24/19 03:09 Pulse 79 12/24/19 03:09 Resp 16 12/24/19 03:09 BP 112/72 12/24/19 03:09 Pulse Ox 99 12/24/19 03:09 Weight - Most Recent: 75.342 kg I&O - Last 24 Hours: Intake & Output 12/23/19 12/23/19 12/24/19 14:59 22:59 06:59 Intake Total 361 500 Balance 361 500 Lab Results - Last 24 Hours: Laboratory Results - last 24 hr 12/21/19 12/21/19 12/23/19 Range/Units 16:35 16:35 06:25 WBC 10.03 (3.98-10.04) K/mm3 RBC 2.29 L (3.98-5.22) M/mm3 Hgb 6.5 L* D (11.2-15.7) gm/dl Hct 20.9 L (34.1-44.9) % MCV 91.3 (79.4-94.8) fl MCH 28.4 (25.6-32.2) pg MCHC 31.1 L (32.2-35.5) g/dl RDW Std Deviation 38.8 (36.4-46.3) fL Plt Count 113 L (182-369) K/mm3 MPV 11.9 (9.4-12.3) fl Blood Type A POSITIVE Gel Antibody Screen Negative Crossmatch See Detail See Detail Med Orders - Current: Current Medications Acetaminophen (Tylenol) 650 mg PO Q4H PRN PRN Reason: mild pain or fever Last Admin: 12/23/19 00:47 Dose: 650 mg Documented by: Benzocaine/Menthol (Dermoplast Pain Relief [place]) 0 gm TOP ASDIRECTED PRN PRN Reason: Perineal Comfort Measure Sodium Chloride (Normal Saline) 1,000 mls @ 125 mls/hr IV ASDIRECTED MADELAINE Last Admin: 12/23/19 09:40 Dose: 125 mls/hr Documented by: Ibuprofen (Motrin) 600 mg PO Q4H PRN PRN Reason: Mild pain or fever Last Admin: 12/23/19 17:13 Dose: 600 mg Documented by: Ondansetron HCl (Zofran) 4 mg IVPUSH Q8H PRN PRN Reason: Nausea Last Admin: 12/22/19 17:49 Dose: 4 mg Documented by: Shiraz Mcclellan) 1 pad TOP ASDIRECTED PRN PRN Reason: Perineal Comfort Measure Discontinued Medications Bupivacaine HCl (Sensorcaine-Mpf 0.25%) 10 ml .ROUTE .STK-MED ONE Stop: 12/22/19 00:01 Diphenhydramine HCl (Benadryl) 25 mg IVPUSH Q6H PRN PRN Reason: pruritis Ephedrine Sulfate (Ephedrine Sulfate) 5 mg IVPUSH ASDIRECTED PRN PRN Reason: Hypotension Fentanyl (Sublimaze) 100 mcg EPIDUR Q3H PRN PRN Reason: Pain Last Admin: 12/22/19 11:54 Dose: 100 mcg Documented by: Fentanyl/Bupivacaine HCl (Fentanyl/Bupivacaine/Ns 2 Mcg-0.125% 100 Ml) 100 ml EPIDUR ASDIRECTED PRN PRN Reason: Pain Last Admin: 12/22/19 11:54 Dose: 100 ml Documented by: Lactated Ringer's (Ringers, Lactated) 1,000 mls @ 40 mls/hr IV ASDIRECTED MADELAINE Last Admin: 12/22/19 12:02 Dose: 40 mls/hr Documented by: Oxytocin/Lactated Ringer's (Pitocin In Lr 10 Units/1,000 Ml) 10 unit in 1,000 mls @ 12 mls/hr IV TITRATE MADELAINE; Protocol Last Titration: 12/22/19 12:24 Dose: 0 munits/min, 0 mls/hr Documented by: Oxytocin/Lactated Ringer's (Pitocin In Lr 10 Units/1,000 Ml) 10 unit in 1,000 mls @ 500 mls/hr IV .CONTINUOUS MADELAINE Ondansetron HCl 8 mg/ Sodium (Chloride) 54 mls @ 100 mls/hr IV ONETIME ONE Stop: 12/22/19 17:50 Last Admin: 12/23/19 07:45 Dose: Not Given Documented by: Lactated Ringer's (Ringers, Lactated) 1,000 mls @ 1,000 mls/hr IV .BOLUS ONE Stop: 12/22/19 18:17 Last Admin: 12/22/19 17:20 Dose: 1,000 mls/hr Documented by: Misoprostol (Cytotec) 25 mcg VAG Q4H PRN PRN Reason: cervical ripening Last Admin: 12/21/19 17:15 Dose: 25 mcg Documented by: Misoprostol (Cytotec) Confirm Administered Dose 25 mcg .ROUTE .STK-MED ONE Stop: 12/21/19 17:10 Last Admin: 12/22/19 02:14 Dose: Not Given Documented by: Misoprostol (Cytotec) 25 mcg VAG Q4H PRN PRN Reason: cervical ripening Last Admin: 12/22/19 01:19 Dose: 25 mcg Documented by: Misoprostol (Cytotec) 25 mcg VAG ONETIME ONE Stop: 12/22/19 05:16 Last Admin: 12/23/19 07:45 Dose: Not Given Documented by: Misoprostol (Cytotec) 600 mcg PO NOW STA Stop: 12/22/19 14:46 Last Admin: 12/22/19 14:35 Dose: 600 mcg Documented by: Nalbuphine HCl (Nubain) 10 mg IVPUSH Q2H PRN PRN Reason: Pain Last Admin: 12/22/19 11:16 Dose: 10 mg Documented by: Ondansetron HCl (Zofran) 4 mg IVPUSH Q4H PRN PRN Reason: Nausea/Vomiting Ondansetron HCl (Zofran) Confirm Administered Dose 8 mg .ROUTE .STK-MED ONE Stop: 12/22/19 17:40 Last Admin: 12/23/19 07:46 Dose: Not Given Documented by: Sodium Chloride (Saline Flush) 10 ml FLUSH ASDIRECTED PRN PRN Reason: Keep Vein Open - Infant Interaction Infant Disposition, : in Room with Family Interaction: Holding Infant Feeding: Breastfed ; Nursed Well - Recovery Exam Fundal Tone: Firm Fundal Level: 1 Fingerbreadths Below Umbilicus Fundal Placement: Midline Lochia Amount: Small Lochia Color: Rubra/Red Perineum Description: Intact, Minimal Bruising/Swelling Episiotomy/Laceration: Approximated Bladder Status: Voiding Urinary Elimination: Voided - Exam General: Alert, Oriented, Cooperative GI/Abdominal Exam: Soft, Non-Tender Extremities: Normal Inspection - Problem List & Annotations (1) 38 weeks gestation of SNOMED Code(s): 41935633 Code(s): Z3A.38 - 38 WEEKS GESTATION OF Status: Acute (2) Preeclampsia SNOMED Code(s): 045668019 Code(s): O14.90 - UNSPECIFIED PRE-ECLAMPSIA, UNSPECIFIED TRIMESTER Status: Acute Qualifiers: Trimester: third trimester Qualified Code(s): O14.93 - Unspecified pre- eclampsia, third trimester (3) Vaginal delivery SNOMED Code(s): 680449032 Code(s): O80 - ENCOUNTER FOR FULL-TERM UNCOMPLICATED DELIVERY Status: Acute (4) hemorrhage SNOMED Code(s): 33497755 Code(s): O72.1 - OTHER IMMEDIATE HEMORRHAGE Status: Acute Qualifiers: hemorrhage type: other immediate Qualified Code(s): O72.1 - Other immediate hemorrhage - Problem List Review Problem List Initiated/Reviewed/Updated: Yes - My Orders Last 24 Hours: My Active Orders 12/23/19 07:14 Verify Patient Consent Obtain [RC] ASDIRECTED Transfuse Red Blood Cells [COMM] Routine 12/23/19 07:15 Sodium Chloride 0.9% [Normal Saline] 1,000 ml IV ASDIRECTED 12/23/19 15:00 Heat Therapy [OM.PC] PRN 12/24/19 06:29 Ready for Discharge [RC] PER UNIT ROUTINE - Assessment Assessment:: PPD#2 - Plan Plan:: * Routine cares * Breast feeding * BP's normal - will need BP check next week * Feeling much improved after transfusion 1 unit PRBC - no further monitoring needed * Discharge home today
--- NOTE | 2019-12-24 06:30 | PCM.DCSUM1 ---
Discharge Summary - Discharge Data Discharge Date: 12/24/19 Discharge Disposition: Home, Self-Care 01 Condition: Good - Referral to Home Health Primary Care Physician: Natividad Franco MD - Discharge Diagnosis/Problem(s) (1) 38 weeks gestation of SNOMED Code(s): 17579056 ICD Code: Z3A.38 - 38 WEEKS GESTATION OF Status: Acute (2) Preeclampsia SNOMED Code(s): 201912192 ICD Code: O14.90 - UNSPECIFIED PRE-ECLAMPSIA, UNSPECIFIED TRIMESTER Status: Acute Qualifiers: Trimester: third trimester Qualified Code(s): O14.93 - Unspecified pre-eclampsia, third trimester (3) Vaginal delivery SNOMED Code(s): 506803494 ICD Code: O80 - ENCOUNTER FOR FULL-TERM UNCOMPLICATED DELIVERY Status: Acute (4) hemorrhage SNOMED Code(s): 15933624 ICD Code: O72.1 - OTHER IMMEDIATE HEMORRHAGE Status: Acute Qualifiers: hemorrhage type: other immediate Qualified Code(s): O72.1 - Ot her immediate hemorrhage - Patient Summary/Data Complications: None Consults: None Recommended Follow-up Testing/Procedures: Follow up in 1 week for BP check and 3 weeks for check Hospital Course: 19 y/o at 38 2/7 wks who presented for IOL for gestational HTN. Done with cytotec and then pitocin/AROM. Did well and progressed to complete dilation. Underwent vaginal delivery. This was notable for PPH and swiftly bleeding laceration. on PPD#1 was noted to be anemic with Hb of ~6.5. Given 1 unit of PRBC for this finding and reported feeling significantly improved. Did well and was discharged home on PPD#2 - Patient Instructions Diet: Regular Diet as Tolerated Activity: As Tolerated Activity, Other: Pelvic rest for 6 weeks Driving: May Drive Today Showering/Bathing: May Shower Showering/Bathing, Other: May Bathe Notify Provider of: Fever, Increased Pain, Swelling and Redness, Drainage, Nausea and/or Vomiting - Discharge Plan *PRESCRIPTION DRUG MONITORING PROGRAM REVIEWED*: No *COPY OF PRESCRIPTION DRUG MONITORING REPORT IN PATIENT GAURANG: No Prescriptions/Med Rec: Ferrous Sulfate 325 mg PO DAILY #90 tablet Home Medications: Home Meds Vit #76/Iron,Carb/Fa [Prenatabs Rx] 1 tab PO DAILY 12/21/19 [History] Ferrous Sulfate 325 mg PO DAILY #90 tablet 12/23/19 [Rx] Ibuprofen [Motrin] 600 mg PO Q4H PRN tablet 12/23/19 [Rx] Patient Handouts: Care After Vaginal Delivery Referrals: Natividad Franco MD [Primary Care Provider] - (3 weeks for exam - can be telehealth 1 week RN only BP check (can be coordinated with Peds appt)) - Discharge Summary/Plan Comment DC Time >30 min.: No - Patient Data Vitals - Most Recent: Last Vital Signs Temp 37.2 C 12/24/19 03:09 Pulse 79 12/24/19 03:09 Resp 16 12/24/19 03:09 BP 112/72 12/24/19 03:09 Pulse Ox 99 12/24/19 03:09 Weight - Most Recent: 75.342 kg I&O - Last 24 hours: Intake & Output 12/23/19 12/23/19 12/24/19 14:59 22:59 06:59 Intake Total 361 500 Balance 361 500 Lab Results - Last 24 hrs: Laboratory Results - last 24 hr 12/21/19 12/21/19 12/23/19 Range/Units 16:35 16:35 06:25 WBC 10.03 (3.98-10.04) K/mm3 RBC 2.29 L (3.98-5.22) M/mm3 Hgb 6.5 L* D (11.2-15.7) gm/dl Hct 20.9 L (34.1-44.9) % MCV 91.3 (79.4-94.8) fl MCH 28.4 (25.6-32.2) pg MCHC 31.1 L (32.2-35.5) g/dl RDW Std Deviation 38.8 (36.4-46.3) fL Plt Count 113 L (182-369) K/mm3 MPV 11.9 (9.4-12.3) fl Blood Type A POSITIVE Gel Antibody Screen Negative Crossmatch See Detail See Detail Med Orders - Current: Current Medications Acetaminophen (Tylenol) 650 mg PO Q4H PRN PRN Reason: mild pain or fever Last Admin: 12/23/19 00:47 Dose: 650 mg Documented by: Benzocaine/Menthol (Dermoplast Pain Relief [place]) 0 gm TOP ASDIRECTED PRN PRN Reason: Perineal Comfort Measure Sodium Chloride (Normal Saline) 1,000 mls @ 125 mls/hr IV ASDIRECTED MADELAINE Last Admin: 12/23/19 09:40 Dose: 125 mls/hr Documented by: Ibuprofen (Motrin) 600 mg PO Q4H PRN PRN Reason: Mild pain or fever Last Admin: 12/23/19 17:13 Dose: 600 mg Documented by: Ondansetron HCl (Zofran) 4 mg IVPUSH Q8H PRN PRN Reason: Nausea Last Admin: 12/22/19 17:49 Dose: 4 mg Documented by: Shiraz Johnson ([facility]) 1 pad TOP ASDIRECTED PRN PRN Reason: Perineal Comfort Measure Discontinued Medications Bupivacaine HCl (Sensorcaine-Mpf 0.25%) [address] .[address] .[facility]-MED ONE Stop: 12/22/19 00:01 Diphenhydramine HCl (Benadryl) 25 mg IVPUSH Q6H PRN PRN Reason: pruritis Ephedrine Sulfate (Ephedrine Sulfate) 5 mg IVPUSH ASDIRECTED PRN PRN Reason: Hypotension Fentanyl (Sublimaze) 100 mcg EPIDUR Q3H PRN PRN Reason: Pain Last Admin: 12/22/19 11:54 Dose: 100 mcg Documented by: Fentanyl/Bupivacaine HCl (Fentanyl/Bupivacaine/Ns 2 Mcg-0.125% 100 Ml) 100 ml EPIDUR ASDIRECTED PRN PRN Reason: Pain Last Admin: 12/22/19 11:54 Dose: 100 ml Documented by: Lactated Ringer's (Ringers, Lactated) 1,000 mls @ 40 mls/hr IV ASDIRECTED MADELAINE Last Admin: 12/22/19 12:02 Dose: 40 mls/hr Documented by: Oxytocin/Lactated Ringer's (Pitocin In Lr 10 Units/1,000 Ml) 10 unit in 1,000 mls @ 12 mls/hr IV TITRATE MADELAINE; Protocol Last Titration: 12/22/19 12:24 Dose: 0 munits/min, 0 mls/hr Documented by: Oxytocin/Lactated Ringer's (Pitocin In Lr 10 Units/1,000 Ml) 10 unit in 1,000 mls @ 500 mls/hr IV .CONTINUOUS MADELAINE Ondansetron HCl 8 mg/ Sodium (Chloride) 54 mls @ 100 mls/hr IV ONETIME ONE Stop: 12/22/19 17:50 Last Admin: 12/23/19 07:45 Dose: Not Given Documented by: Lactated Ringer's (Ringers, Lactated) 1,000 mls @ 1,000 mls/hr IV .BOLUS ONE Stop: 12/22/19 18:17 Last Admin: 12/22/19 17:20 Dose: 1,000 mls/hr Documented by: Misoprostol (Cytotec) 25 mcg VAG Q4H PRN PRN Reason: cervical ripening Last Admin: 12/21/19 17:15 Dose: 25 mcg Documented by: Misoprostol (Cytotec) Confirm Administered Dose 25 mcg .ROUTE .STK-MED ONE Stop: 12/21/19 17:10 Last Admin: 12/22/19 02:14 Dose: Not Given Documented by: Misoprostol (Cytotec) 25 mcg VAG Q4H PRN PRN Reason: cervical ripening Last Admin: 12/22/19 01:19 Dose: 25 mcg Documented by: Misoprostol (Cytotec) 25 mcg VAG ONETIME ONE Stop: 12/22/19 05:16 Last Admin: 12/23/19 07:45 Dose: Not Given Documented by: Misoprostol (Cytotec) 600 mcg PO NOW STA Stop: 12/22/19 14:46 Last Admin: 12/22/19 14:35 Dose: 600 mcg Documented by: Nalbuphine HCl (Nubain) 10 mg IVPUSH Q2H PRN PRN Reason: Pain Last Admin: 12/22/19 11:16 Dose: 10 mg Documented by: Ondansetron HCl (Zofran) 4 mg IVPUSH Q4H PRN PRN Reason: Nausea/Vomiting Ondansetron HCl (Zofran) Confirm Administered Dose 8 mg .ROUTE .STK-MED ONE Stop: 12/22/19 17:40 Last Admin: 12/23/19 07:46 Dose: Not Given Documented by: Sodium Chloride (Saline Flush) 10 ml FLUSH ASDIRECTED PRN PRN Reason: Keep Vein Open
== END 2019-12-24 10:22 | disposition home or self-care (01) | DRG 806 ==
LOC: JD.OBCHECK 16:16 → JD.OB 16:21 → JD.OBCHECK 17:04 → JD.OB 17:05 → OBSVTOIN 12-22 14:28 → JD.OB 12-22 14:29
PROVIDERS: ADMIT Obstetrics & Gynecology; ATTEND Obstetrics & Gynecology
PROC: 10E0XZZ Delivery of Products of Conception, External Approach (ICD-10-PCS; principal; 2019-12-22)
PROC: 10907ZC Drainage of Amniotic Fluid, Therapeutic from Products of Conception, Via Natural or Artificial Opening (ICD-10-PCS; 2019-12-22)
PROC: 3E0P7VZ Introduction of Hormone into Female Reproductive, Via Natural or Artificial Opening (ICD-10-PCS; 2019-12-22)
PROC: 3E033VJ Introduction of Other Hormone into Peripheral Vein, Percutaneous Approach (ICD-10-PCS; 2019-12-22)
PROC: 0HQ9XZZ Repair Perineum Skin, External Approach (ICD-10-PCS; 2019-12-22)
PROC: 30233N1 Transfusion of Nonautologous Red Blood Cells into Peripheral Vein, Percutaneous Approach (ICD-10-PCS; 2019-12-22)
DX: O14.04 Mild to moderate pre-eclampsia, complicating childbirth (principal); D62 Acute posthemorrhagic anemia; Z37.0 Single live birth; Z3A.38 38 weeks gestation of pregnancy; O72.1 Other immediate postpartum hemorrhage; Z20.828 Contact with and (suspected) exposure to other viral communicable diseases; O70.0 First degree perineal laceration during delivery; O99.02 Anemia complicating childbirth
CPT/HCPCS: 01967; 36415; 36430; 51702; 59025; 59409; 82565; 82570; 84156; 84450; 84460; 85025; 85027; 86592; 86850; 86900; 86901; 86922; A9270-GY; J2300; J2405; J2590; J3010; J3490; J7030; J7120; P9016; U0002

== ENCOUNTER 2020-11-12 18:13 | Emergency (ER) | payer OTHER, MEDICAID ==
[2020-11-12] MEDS ORDERED: Proparacaine 0.5% Ophth Soln 15 ML Bottle EYELF STA (19:04)
[2020-11-12] MEDS ORDERED: Fluorescein 1 MG Ophth Strip EYELF ONE (19:04)
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
== END 2020-11-12 19:40 | disposition home or self-care (01) ==
LOC: JD.ED 18:13
DX: S05.02XA Injury of conjunctiva and corneal abrasion without foreign body, left eye, initial encounter (principal); W50.0XXA Accidental hit or strike by another person, initial encounter
CPT/HCPCS: 99283